=== PATIENT | male | born 1950 | race Caucasian/White ===

== ENCOUNTER 2019-01-02 07:35 | Inpatient (IN) | payer MEDICARE, MEDICAID ==
[~2019-01-02] VITALS: Ht 172.7 cm; Wt 68.5 kg
[2019-01-02 13:04] LABS: HEMATOCRIT. 38.7 % (42.0-52.0); MEAN CORPUSCULAR HEMOGLOBIN 28.9 pg (28.0-32.0); MEAN CORPUSCULAR VOLUME 85.9 fL (80.0-94.0); MEAN PLATELET VOLUME 7.2 fl (7.4-10.4); PLATELET 173 x1000/uL (130-400); RED BLOOD CELL COUNT 4.51 mill/uL (4.7-6.1); RED CELL DISTRIBUTION WIDTH 13.2 % (11.6-14.6)
[2019-01-02 13:11] LABS: INR 1.1; PROTHROMBIN TIME 11.2 sec (9.1-11.1)
[2019-01-02 13:12] LABS: CHLORIDE 90 mEq/L (98-107)
[2019-01-02 14:26] LABS: PLATELET ESTIMATE NORMAL
[2019-01-02 18:08] LABS: CLARITY URINE CLOUDY (CLEAR); COLOR URINE YELLOW (YELLOW); KETONES URINE NEGATIVE (NEGATIVE); LEUKOCYTE ESTERASE URINE NEGATIVE (NEGATIVE); NITRITE URINE NEGATIVE (NEGATIVE); OCCULT BLOOD URINE 3+ (NEGATIVE); PH URINE 5.5 (4.5-8.0); PROTEIN URINE 2+ (NEGATIVE); SPECIFIC GRAVITY URINE 1.014 (1.005-1.030)
[2019-01-02] MEDS ORDERED: SODIUM CHLORIDE 0.9% 100 ML IV ONE (18:15)
[2019-01-02] MEDS ORDERED: LEVOFLOXACIN 750MG PREMIX 150 ML IV ONE (19:00)
[2019-01-02 22:00] VITALS: BP 129/69
[2019-01-02 22:20] VITALS: BP 129/69
[2019-01-02] MEDS ORDERED: IPRATROPIUM/ALBUTEROL 0.5-3(2.5)MG/3ML NEB INH PRN (23:00)
[2019-01-02] MEDS ORDERED: DIPHENHYDRAMINE 50MG/ML VIAL IV PRN (23:00)
[2019-01-02] MEDS ORDERED: MAGNESIUM/ALUMINUM HYDROXIDE/SIMETHICONE 30ML UDC PO PRN (23:00)
[2019-01-02] MEDS ORDERED: GUAIFENESIN 200MG/10ML SUGAR FREE UDC PO PRN (23:00)
[2019-01-02] MEDS ORDERED: CLONIDINE 0.1MG TABLET PO PRN (23:00)
[2019-01-02] MEDS: TAMSULOSIN HCL 0.4MG SR CAPSULE PO SCH (23:45)
[2019-01-02] MEDS: SODIUM CHLORIDE 0.9% 1,000 ML IV SCH (23:46)
[2019-01-03] VITALS (7 sets, daily range): BP systolic 101–135; BP diastolic 57–82
[2019-01-03 07:26] LABS: HEMATOCRIT. 34.5 % (42.0-52.0); HEMOGLOBIN. 11.7 g/dL (14.0-18.0); MEAN CORPUSCULAR HEMOGLOBIN 28.9 pg (28.0-32.0); MEAN CORPUSCULAR VOLUME 85.5 fL (80.0-94.0); PLATELET 149 x1000/uL (130-400); RED BLOOD CELL COUNT 4.04 mill/uL (4.7-6.1)
[2019-01-03 08:13] LABS: CHLORIDE 97 mEq/L (98-107)
[2019-01-03 08:22] LABS: PHOSPHORUS 2.1 mg/dL (2.5-4.9)
[2019-01-03] MEDS: TAMSULOSIN HCL 0.4MG SR CAPSULE PO SCH (09:07)
[2019-01-03] MEDS: POTASSIUM CHLORIDE 20MEQ TABLET SR PO PRN (09:20)
[2019-01-03] MEDS: HYDROCODONE/ACETAMINOPHEN 5/325MG TABLET PO PRN ×2 (09:21→15:45)
[2019-01-03] MEDS ORDERED: POTASSIUM CHLORIDE 10MEQ TABLET SR PO SCH (11:15)
[2019-01-03] MEDS ORDERED: MAGNESIUM 1 G PREMIX 100 ML IV SCH ×2 (12:30→14:00)
[2019-01-03 12:34] LABS: PLATELET ESTIMATE NORMAL
[2019-01-03] MEDS ORDERED: PIPERACILLIN/TAZ 3.375G PREMIX 50 ML IV SCH (14:00)
[2019-01-03] MEDS ORDERED: VANCOMYCIN 1500MG in DEXTROSE 5% WATER 250ML IV NR (14:00)
[2019-01-03] MEDS ORDERED: SODIUM PHOS,M-BASIC-D-BASIC 15 MM in DEXT 5% WATER 245 ML IV NR (14:30)
[2019-01-03] MEDS: SODIUM CHLORIDE 0.9% 1,000 ML IV SCH (15:41)
[2019-01-03] MEDS ORDERED: DOXYCYCLINE HYCLATE 100MG CAPSULE PO NR (17:00)
[2019-01-03] MEDS ORDERED: LEVOFLOXACIN 500MG PREMIX 100 ML IV SCH (18:00)
[2019-01-03] MEDS: ENOXAPARIN 40MG/0.4ML SYR SUBCUT SCH (18:00)
[2019-01-03] MEDS ORDERED: PERMETHRIN 5% CREAM 60GM TOP ONE (18:00)
[2019-01-03] MEDS: VANCOMYCIN 750 MG PREMIX 150 ML IV SCH (23:30)
[2019-01-04] VITALS: BP 92/51
[2019-01-04] MEDS ORDERED: VANCOMYCIN 1 G PREMIX 200 ML IV SCH (02:00)
[2019-01-04 04:00] VITALS: BP 93/55
[2019-01-04] MEDS: VANCOMYCIN 750 MG PREMIX 150 ML IV SCH ×2 (05:16→15:17)
[2019-01-04 06:51] LABS: HEMATOCRIT. 36.2 % (42.0-52.0); HEMOGLOBIN. 12.2 g/dL (14.0-18.0); MEAN CORPUSCULAR VOLUME 86.3 fL (80.0-94.0); MEAN PLATELET VOLUME 8.5 fl (7.4-10.4); PLATELET 157 x1000/uL (130-400); RED BLOOD CELL COUNT 4.19 mill/uL (4.7-6.1); RED CELL DISTRIBUTION WIDTH 13.6 % (11.6-14.6)
[2019-01-04 06:55] LABS: CHLORIDE 100 mEq/L (98-107)
[2019-01-04 07:15] LABS: HEPATITIS B SURFACE ANTIGEN NEGATIVE
[2019-01-04 07:18] LABS: CREATINE KINASE 2113 IU/L (39-308)
[2019-01-04 07:45] LABS: HEPATITIS A AB IGM NEGATIVE (NEGATIVE)
[2019-01-04 08:00] VITALS: BP 94/57
[2019-01-04] MEDS: DOXYCYCLINE HYCLATE 100MG CAPSULE PO SCH ×2 (08:25→21:00)
[2019-01-04] MEDS: TAMSULOSIN HCL 0.4MG SR CAPSULE PO SCH (08:26)
[2019-01-04] MEDS: HYDROCODONE/ACETAMINOPHEN 10/325MG TABLET PO PRN (08:28)
[2019-01-04] MEDS: SODIUM CHLORIDE 0.9% 1,000 ML IV SCH ×2 (08:35→22:58)
[2019-01-04] MEDS ORDERED: CEFTRIAXONE 2 G PREMIX 50 ML IV SCH (09:00)
[2019-01-04] MEDS: CEFTRIAXONE 2 G in DEXTROSE 5% WATER 50 ML IV SCH (10:23)
[2019-01-04 10:25] LABS: PLATELET ESTIMATE NORMAL
[2019-01-04 12:00] VITALS: BP 97/53
[2019-01-04] MEDS ORDERED: ONDANSETRON HCL 4MG/2ML INJ IV PRN (12:15)
[2019-01-04 16:00] VITALS: BP_SYST 114; BP_SYST 126; BP_DIAS 63; BP_DIAS 70
[2019-01-04] MEDS: MULTIVITAMINS,THER W-MINERALS TABLET PO SCH (17:40)
[2019-01-04] MEDS: ZINC SULFATE 220 MG ( 50 ) CAPSULE PO SCH (17:40)
[2019-01-04] MEDS: ENOXAPARIN 40MG/0.4ML SYR SUBCUT SCH (17:40)
[2019-01-04 20:00] VITALS: BP 112/64
[2019-01-04] MEDS: ASCORBIC ACID 250 MG TABLET PO SCH (21:43)
[2019-01-05] VITALS: BP 103/66
[2019-01-05 04:00] VITALS: BP 100/60
[2019-01-05 06:22] LABS: HEMATOCRIT. 33.4 % (42.0-52.0); HEMOGLOBIN. 11.2 g/dL (14.0-18.0); MEAN CORPUSCULAR VOLUME 86.6 fL (80.0-94.0); MEAN PLATELET VOLUME 8.6 fl (7.4-10.4); PLATELET 149 x1000/uL (130-400); RED BLOOD CELL COUNT 3.86 mill/uL (4.7-6.1); RED CELL DISTRIBUTION WIDTH 13.5 % (11.6-14.6)
[2019-01-05 06:47] LABS: CHLORIDE 98 mEq/L (98-107)
[2019-01-05 06:56] LABS: PHOSPHORUS 2.5 mg/dL (2.5-4.9)
[2019-01-05 08:00] VITALS: BP 122/86
[2019-01-05] MEDS: TAMSULOSIN HCL 0.4MG SR CAPSULE PO SCH (09:00)
[2019-01-05 09:10] LABS: HIV SCREEN 4G Non Reactive (Non Reactive)
[2019-01-05] MEDS: ASCORBIC ACID 250 MG TABLET PO SCH ×2 (09:22→21:10)
[2019-01-05] MEDS: DOXYCYCLINE HYCLATE 100MG CAPSULE PO SCH ×2 (09:22→21:10)
[2019-01-05] MEDS: ZINC SULFATE 220 MG ( 50 ) CAPSULE PO SCH (09:22)
[2019-01-05] MEDS: MULTIVITAMINS,THER W-MINERALS TABLET PO SCH (09:22)
[2019-01-05] MEDS: KETOROLAC 30MG/ML VIAL IV PRN (10:53)
[2019-01-05] MEDS: CEFTRIAXONE 2 G in DEXTROSE 5% WATER 50 ML IV SCH (11:34)
[2019-01-05] MEDS: ENOXAPARIN 60MG/0.6ML SYR SUBCUT SCH ×2 (11:35→21:10)
[2019-01-05 12:00] VITALS: BP 92/54
[2019-01-05] MEDS: DILTIAZEM HCL 30MG TABLET PO SCH ×2 (14:00→21:10)
[2019-01-05] MEDS: CELECOXIB 200MG CAPSULE PO SCH (14:47)
[2019-01-05 15:10] LABS: ANTI-NUCLEAR ANTIBODIES DIRECT Negative (Negative)
[2019-01-05 16:00] VITALS: BP 90/57
[2019-01-05 20:00] VITALS: BP 103/56
[2019-01-05] MEDS: HYDROCODONE/ACETAMINOPHEN 10/325MG TABLET PO PRN (21:11)
[2019-01-06] VITALS (7 sets, daily range): BP systolic 85–115; BP diastolic 50–64
[2019-01-06] MEDS: DILTIAZEM HCL 30MG TABLET PO SCH ×3 (05:55→21:59)
[2019-01-06] MEDS: HYDROCODONE/ACETAMINOPHEN 10/325MG TABLET PO PRN (05:55)
[2019-01-06 06:39] LABS: BASOPHILS % 0.1 % (0.0-2.0); EOSINOPHILS % 2.1 % (0.0-5.0); HEMATOCRIT. 36.5 % (42.0-52.0); HEMOGLOBIN. 12.2 g/dL (14.0-18.0); LYMPHOCYTES % 7.6 % (20.0-50.0); MEAN CORPUSCULAR HEMOGLOBIN 29.1 pg (28.0-32.0); MEAN CORPUSCULAR VOLUME 87.4 fL (80.0-94.0); MEAN PLATELET VOLUME 8.3 fl (7.4-10.4); MONOCYTES % 4.7 % (2.0-8.0); NEUTROPHILS % 85.5 % (40.0-76.0); PLATELET 177 x1000/uL (130-400); RED BLOOD CELL COUNT 4.18 mill/uL (4.7-6.1); RED CELL DISTRIBUTION WIDTH 13.7 % (11.6-14.6)
[2019-01-06 08:26] LABS: CHLORIDE 100 mEq/L (98-107)
[2019-01-06] MEDS: TAMSULOSIN HCL 0.4MG SR CAPSULE PO SCH (09:00)
[2019-01-06] MEDS: CELECOXIB 200MG CAPSULE PO SCH (09:40)
[2019-01-06] MEDS: POTASSIUM CHLORIDE 20MEQ TABLET SR PO PRN (09:40)
[2019-01-06] MEDS: MULTIVITAMINS,THER W-MINERALS TABLET PO SCH (09:40)
[2019-01-06] MEDS: DOXYCYCLINE HYCLATE 100MG CAPSULE PO SCH ×2 (09:40→20:38)
[2019-01-06] MEDS: ZINC SULFATE 220 MG ( 50 ) CAPSULE PO SCH (09:40)
[2019-01-06] MEDS: CEFTRIAXONE 2 G in DEXTROSE 5% WATER 50 ML IV SCH (09:40)
[2019-01-06] MEDS: ASCORBIC ACID 250 MG TABLET PO SCH ×2 (09:41→20:38)
[2019-01-06] MEDS: ENOXAPARIN 60MG/0.6ML SYR SUBCUT SCH ×2 (09:41→20:39)
[2019-01-06] MEDS ORDERED: IOHEXOL-300 100 ML BOTTLE ONE (13:26)
[2019-01-06 13:36] LABS: PLATELET ESTIMATE NORMAL
[2019-01-06] MEDS ORDERED: POTASSIUM CHLORIDE 20MEQ TABLET SR PO SCH (16:00)
[2019-01-06] MEDS: KETOROLAC 30MG/ML VIAL IV PRN (19:02)
[2019-01-06] MEDS: SODIUM CHLORIDE 0.9% 1,000 ML IV SCH (20:45)
[2019-01-07] VITALS: BP 98/49
[2019-01-07] MEDS: SODIUM CHLORIDE 0.9% 1,000 ML IV SCH ×3 (00:11→22:35)
[2019-01-07 04:00] VITALS: BP 97/43
[2019-01-07] MEDS: DILTIAZEM HCL 30MG TABLET PO SCH ×3 (05:49→21:27)
[2019-01-07 06:39] LABS: HEMATOCRIT. 32.7 % (42.0-52.0); HEMOGLOBIN. 10.9 g/dL (14.0-18.0); MEAN CORPUSCULAR HEMOGLOBIN 29.1 pg (28.0-32.0); MEAN PLATELET VOLUME 8.3 fl (7.4-10.4); PLATELET 240 x1000/uL (130-400); RED BLOOD CELL COUNT 3.75 mill/uL (4.7-6.1); RED CELL DISTRIBUTION WIDTH 13.8 % (11.6-14.6)
[2019-01-07 07:34] LABS: CHLORIDE 103 mEq/L (98-107)
[2019-01-07 08:00] VITALS: BP 111/63
[2019-01-07] MEDS: ASCORBIC ACID 250 MG TABLET PO SCH ×2 (09:29→21:27)
[2019-01-07] MEDS: CELECOXIB 200MG CAPSULE PO SCH (09:29)
[2019-01-07] MEDS: TAMSULOSIN HCL 0.4MG SR CAPSULE PO SCH (09:29)
[2019-01-07] MEDS: DOXYCYCLINE HYCLATE 100MG CAPSULE PO SCH ×2 (09:29→21:26)
[2019-01-07] MEDS: CEFTRIAXONE 2 G in DEXTROSE 5% WATER 50 ML IV SCH (09:29)
[2019-01-07] MEDS: MULTIVITAMINS,THER W-MINERALS TABLET PO SCH (09:29)
[2019-01-07] MEDS: ZINC SULFATE 220 MG ( 50 ) CAPSULE PO SCH (09:30)
[2019-01-07] MEDS: ENOXAPARIN 60MG/0.6ML SYR SUBCUT SCH ×2 (09:30→23:44)
[2019-01-07 12:00] VITALS: BP 114/58
[2019-01-07 14:22] LABS: PLATELET ESTIMATE NORMAL
[2019-01-07] MEDS: DOCUSATE SODIUM 100MG CAPSULE PO PRN (14:38)
[2019-01-07 16:20] VITALS: BP 109/63
[2019-01-07 19:06] LABS: QFT MITOGEN VALUE 0.22 IU/mL (.); QFT TB GOLD PLUS Indeterminate (Negative); QFT TB1 AG VALUE 0.17 IU/mL (.)
[2019-01-07 20:00] VITALS: BP 132/60
[2019-01-07] MEDS: KETOROLAC 30MG/ML VIAL IV PRN (23:43)
[2019-01-08] VITALS: BP 107/51
[2019-01-08 04:00] VITALS: BP 99/43
[2019-01-08] MEDS: SODIUM CHLORIDE 0.9% 1,000 ML IV SCH ×2 (06:21→21:31)
[2019-01-08] MEDS: DILTIAZEM HCL 30MG TABLET PO SCH ×3 (06:25→21:30)
[2019-01-08 06:28] LABS: HEMATOCRIT. 30.3 % (42.0-52.0); MEAN CORPUSCULAR HEMOGLOBIN 28.7 pg (28.0-32.0); MEAN CORPUSCULAR VOLUME 86.9 fL (80.0-94.0); MEAN PLATELET VOLUME 7.5 fl (7.4-10.4); PLATELET 362 x1000/uL (130-400); RED BLOOD CELL COUNT 3.48 mill/uL (4.7-6.1); RED CELL DISTRIBUTION WIDTH 13.6 % (11.6-14.6)
[2019-01-08 06:48] LABS: CHLORIDE 106 mEq/L (98-107)
[2019-01-08 06:57] LABS: CREATINE KINASE 117 IU/L (39-308)
[2019-01-08 08:00] VITALS: BP 134/70
[2019-01-08 09:11] LABS: PLATELET ESTIMATE NORMAL
[2019-01-08] MEDS: DOXYCYCLINE HYCLATE 100MG CAPSULE PO SCH ×2 (09:33→21:30)
[2019-01-08] MEDS: ENOXAPARIN 60MG/0.6ML SYR SUBCUT SCH (09:33)
[2019-01-08] MEDS: CEFTRIAXONE 2 G in DEXTROSE 5% WATER 50 ML IV SCH (09:33)
[2019-01-08] MEDS: ZINC SULFATE 220 MG ( 50 ) CAPSULE PO SCH (09:33)
[2019-01-08] MEDS: CELECOXIB 200MG CAPSULE PO SCH (09:34)
[2019-01-08] MEDS: TAMSULOSIN HCL 0.4MG SR CAPSULE PO SCH (09:34)
[2019-01-08] MEDS: DOCUSATE SODIUM 100MG CAPSULE PO PRN (09:34)
[2019-01-08] MEDS: MULTIVITAMINS,THER W-MINERALS TABLET PO SCH (09:46)
[2019-01-08] MEDS: ASCORBIC ACID 250 MG TABLET PO SCH ×2 (09:46→21:30)
[2019-01-08 12:00] VITALS: BP 139/75
[2019-01-08] MEDS: KETOROLAC 30MG/ML VIAL IV PRN (13:09)
[2019-01-08] MEDS: ASPIRIN 81MG TABLET PO SCH (15:37)
[2019-01-08] MEDS: ENOXAPARIN 40MG/0.4ML SYR SUBCUT SCH (15:40)
[2019-01-08 16:00] VITALS: BP 131/56
[2019-01-08 20:00] VITALS: BP 136/75
[2019-01-09] VITALS: BP 139/72
[2019-01-09 04:00] VITALS: BP 124/59
[2019-01-09 04:14] LABS: ROCKY MTN SPOTTED FEVER IgG QN Negative (Negative)
[2019-01-09 06:01] LABS: HEMATOCRIT. 31.8 % (42.0-52.0); HEMOGLOBIN. 10.7 g/dL (14.0-18.0); MEAN CORPUSCULAR HEMOGLOBIN 29.1 pg (28.0-32.0); MEAN CORPUSCULAR VOLUME 86.5 fL (80.0-94.0); MEAN PLATELET VOLUME 6.9 fl (7.4-10.4); PLATELET 495 x1000/uL (130-400); RED BLOOD CELL COUNT 3.67 mill/uL (4.7-6.1); RED CELL DISTRIBUTION WIDTH 13.9 % (11.6-14.6)
[2019-01-09 06:28] LABS: CHLORIDE 109 mEq/L (98-107)
[2019-01-09] MEDS: DILTIAZEM HCL 30MG TABLET PO SCH ×3 (06:47→21:32)
[2019-01-09] MEDS: SODIUM CHLORIDE 0.9% 1,000 ML IV SCH ×3 (06:47→21:43)
[2019-01-09 06:52] LABS: LDL CHOLESTEROL 50 mg/dL (5-100)
[2019-01-09 06:53] LABS: CREATINE KINASE 95 IU/L (39-308)
[2019-01-09 06:54] LABS: HDL CHOLESTEROL 11 mg/dL (40-59)
[2019-01-09 08:00] VITALS: BP 133/71
[2019-01-09 09:06] LABS: ALDOLASE 11.4 U/L (3.3-10.3)
[2019-01-09] MEDS: ASPIRIN 81MG TABLET PO SCH (09:55)
[2019-01-09] MEDS: CEFTRIAXONE 2 G in DEXTROSE 5% WATER 50 ML IV SCH (09:55)
[2019-01-09] MEDS: ASCORBIC ACID 250 MG TABLET PO SCH (09:55)
[2019-01-09] MEDS: ZINC SULFATE 220 MG ( 50 ) CAPSULE PO SCH (09:55)
[2019-01-09] MEDS: CELECOXIB 200MG CAPSULE PO SCH (09:55)
[2019-01-09] MEDS: MULTIVITAMINS,THER W-MINERALS TABLET PO SCH (09:55)
[2019-01-09] MEDS: TAMSULOSIN HCL 0.4MG SR CAPSULE PO SCH (09:55)
[2019-01-09] MEDS: DOXYCYCLINE HYCLATE 100MG CAPSULE PO SCH ×2 (09:56→21:32)
[2019-01-09] MEDS: HYDROXYCHLOROQUINE SULFATE 200MG TABLET PO SCH ×2 (09:56→18:17)
[2019-01-09] MEDS: KETOROLAC 30MG/ML VIAL IV PRN (10:08)
[2019-01-09 12:00] VITALS: BP 145/77
[2019-01-09 13:06] LABS: ANA IFA Negative (.)
[2019-01-09 14:12] LABS: PLATELET ESTIMATE SLIGHTLY INCREASED
[2019-01-09] MEDS: ENOXAPARIN 40MG/0.4ML SYR SUBCUT SCH (15:10)
[2019-01-09 16:00] VITALS: BP 135/80
[2019-01-09 20:00] VITALS: BP 138/74
[2019-01-09] MEDS: ASCORBIC ACID 500 MG TABLET PO SCH (21:32)
[2019-01-10] VITALS (7 sets, daily range): BP systolic 118–148; BP diastolic 65–81
[2019-01-10] MEDS: KETOROLAC 30MG/ML VIAL IV PRN ×2 (02:21→22:53)
[2019-01-10] MEDS: DILTIAZEM HCL 30MG TABLET PO SCH ×3 (06:00→21:48)
[2019-01-10 06:57] LABS: CHLORIDE 112 mEq/L (98-107)
[2019-01-10] MEDS: TAMSULOSIN HCL 0.4MG SR CAPSULE PO SCH (10:20)
[2019-01-10] MEDS: HYDROXYCHLOROQUINE SULFATE 200MG TABLET PO SCH ×2 (10:20→17:52)
[2019-01-10] MEDS: ZINC SULFATE 220 MG ( 50 ) CAPSULE PO SCH (10:20)
[2019-01-10] MEDS: CEFTRIAXONE 2 G in DEXTROSE 5% WATER 50 ML IV SCH (10:20)
[2019-01-10] MEDS: MULTIVITAMINS,THER W-MINERALS TABLET PO SCH (10:20)
[2019-01-10] MEDS: DOXYCYCLINE HYCLATE 100MG CAPSULE PO SCH ×2 (10:21→21:49)
[2019-01-10] MEDS: ASPIRIN 81MG TABLET PO SCH (10:21)
[2019-01-10] MEDS: CELECOXIB 200MG CAPSULE PO SCH (10:21)
[2019-01-10] MEDS: ASCORBIC ACID 500 MG TABLET PO SCH (10:21)
[2019-01-10] MEDS: SODIUM CHLORIDE 0.9% 1,000 ML IV SCH (10:35)
[2019-01-10] MEDS ORDERED: ASCORBIC ACID 250 MG TABLET PO SCH (12:24)
[2019-01-10 19:07] LABS: ANTI-DNA DOUBLE STRANDED QUANT < 1 IU/mL (0-9); RNP ANTIBODY < 0.2 AI (0.0-0.9); SMITH ANTIBODY < 0.2 AI (0.0-0.9)
[2019-01-10] MEDS: ASCORBIC ACID 250 MG TABLET PO SCH (21:48)
[2019-01-11 04:00] VITALS: BP 126/78
[2019-01-11] MEDS: DILTIAZEM HCL 30MG TABLET PO SCH (05:49)
[2019-01-11] MEDS: SODIUM CHLORIDE 0.9% 1,000 ML IV SCH ×2 (05:57→05:58)
[2019-01-11 07:00] LABS: HEMATOCRIT. 33.3 % (42.0-52.0); HEMOGLOBIN. 10.9 g/dL (14.0-18.0); MEAN CORPUSCULAR HEMOGLOBIN 28.7 pg (28.0-32.0); MEAN CORPUSCULAR VOLUME 87.3 fL (80.0-94.0); MEAN PLATELET VOLUME 6.6 fl (7.4-10.4); PLATELET 632 x1000/uL (130-400); RED BLOOD CELL COUNT 3.82 mill/uL (4.7-6.1)
[2019-01-11 08:00] VITALS: BP 146/81
[2019-01-11] MEDS: CEFTRIAXONE 2 G in DEXTROSE 5% WATER 50 ML IV SCH (08:50)
[2019-01-11] MEDS: ASPIRIN 81MG TABLET PO SCH (09:00)
[2019-01-11] MEDS: ASCORBIC ACID 250 MG TABLET PO SCH ×2 (09:00→21:27)
[2019-01-11] MEDS: ZINC SULFATE 220 MG ( 50 ) CAPSULE PO SCH (09:00)
[2019-01-11] MEDS: MULTIVITAMINS,THER W-MINERALS TABLET PO SCH (09:00)
[2019-01-11] MEDS: HYDROXYCHLOROQUINE SULFATE 200MG TABLET PO SCH ×2 (09:40→17:00)
[2019-01-11] MEDS: CELECOXIB 200MG CAPSULE PO SCH (09:40)
[2019-01-11] MEDS: TAMSULOSIN HCL 0.4MG SR CAPSULE PO SCH (09:41)
[2019-01-11] MEDS: DOXYCYCLINE HYCLATE 100MG CAPSULE PO SCH (09:41)
[2019-01-11 10:06] LABS: ANGIOTENSION CONVERTING ENZYME 55 U/L (14-82)
[2019-01-11 10:08] LABS: CHLORIDE 111 mEq/L (98-107)
[2019-01-11 12:00] VITALS: BP 147/69
[2019-01-11] MEDS: KETOROLAC 30MG/ML VIAL IV PRN ×2 (13:51→21:36)
[2019-01-11 13:59] LABS: PLATELET ESTIMATE INCREASED
[2019-01-11 15:06] LABS: ANTI-MYELOPEROXIDASE AB < 9.0 U/mL (0.0-9.0); ANTI-PROTEINASE 3 ABS < 3.5 U/mL (0.0-3.5); ATYPICAL P-ANCA <1:20 titer (Neg:<1:20); CYTOPLASMIC C-ANCA <1:20 titer (Neg:<1:20); PERINUCLEAR P-ANCA <1:20 titer (Neg:<1:20)
[2019-01-11 16:00] VITALS: BP 165/84
[2019-01-11 19:06] LABS: CYC CITRULLINATED PEP IgG/IgA 7 units (0-19)
[2019-01-11 20:00] VITALS: BP 158/86
[2019-01-12] VITALS: BP 163/87
[2019-01-12 04:00] VITALS: BP 148/86
[2019-01-12 07:04] LABS: BASOPHILS % 0.5 % (0.0-2.0); HEMATOCRIT. 33.7 % (42.0-52.0); HEMOGLOBIN. 11.5 g/dL (14.0-18.0); LYMPHOCYTES % 10.8 % (20.0-50.0); MEAN CORPUSCULAR HEMOGLOBIN 29.7 pg (28.0-32.0); MEAN CORPUSCULAR VOLUME 87.3 fL (80.0-94.0); MEAN PLATELET VOLUME 6.6 fl (7.4-10.4); MONOCYTES % 5.6 % (2.0-8.0); NEUTROPHILS % 82.1 % (40.0-76.0); PLATELET 630 x1000/uL (130-400); RED BLOOD CELL COUNT 3.86 mill/uL (4.7-6.1); RED CELL DISTRIBUTION WIDTH 13.7 % (11.6-14.6)
[2019-01-12 08:00] VITALS: BP 162/83
[2019-01-12 08:15] LABS: CHLORIDE 109 mEq/L (98-107)
[2019-01-12] MEDS: ZINC SULFATE 220 MG ( 50 ) CAPSULE PO SCH (10:13)
[2019-01-12] MEDS: CELECOXIB 200MG CAPSULE PO SCH (10:13)
[2019-01-12] MEDS: HYDROXYCHLOROQUINE SULFATE 200MG TABLET PO SCH ×2 (10:14→17:33)
[2019-01-12] MEDS: AMLODIPINE 5MG TABLET PO SCH (10:14)
[2019-01-12] MEDS: ASPIRIN 81MG TABLET PO SCH (10:14)
[2019-01-12] MEDS: MULTIVITAMINS,THER W-MINERALS TABLET PO SCH (10:15)
[2019-01-12] MEDS: ASCORBIC ACID 250 MG TABLET PO SCH ×2 (10:15→21:00)
[2019-01-12] MEDS: TAMSULOSIN HCL 0.4MG SR CAPSULE PO SCH (10:15)
[2019-01-12] MEDS ORDERED: METHYL SALICYLATE/MENTHOL CREAM 85GM TOP PRN (11:45)
[2019-01-12 12:00] VITALS: BP 148/79
[2019-01-12] MEDS: ACETAMINOPHEN 650MG/20.3ML UDC PO PRN (12:35)
[2019-01-12] MEDS ORDERED: CEFTRIAXONE XX SCH (15:15)
[2019-01-12] MEDS ORDERED: [UNRECOGNIZED DRUG - OTHER] XX SCH (15:15)
[2019-01-12] MEDS: DOXYCYCLINE HYCLATE 100MG CAPSULE PO SCH ×2 (15:50→22:27)
[2019-01-12 16:00] VITALS: BP 146/74
[2019-01-12] MEDS: CEFTRIAXONE 2 G in DEXTROSE 5% WATER 50 ML IV SCH (17:24)
[2019-01-12] MEDS: KETOROLAC 30MG/ML VIAL IV PRN (17:42)
[2019-01-12 20:00] VITALS: BP 154/75
[2019-01-13] VITALS: BP 150/71
[2019-01-13 04:00] VITALS: BP 156/72
[2019-01-13 07:35] LABS: CHLORIDE 108 mEq/L (98-107)
[2019-01-13 08:25] VITALS: BP 150/73
[2019-01-13] MEDS: ZINC SULFATE 220 MG ( 50 ) CAPSULE PO SCH (08:27)
[2019-01-13] MEDS: CELECOXIB 200MG CAPSULE PO SCH (08:27)
[2019-01-13] MEDS: ASCORBIC ACID 250 MG TABLET PO SCH ×2 (08:27→22:27)
[2019-01-13] MEDS: AMLODIPINE 5MG TABLET PO SCH (08:27)
[2019-01-13] MEDS: KETOROLAC 30MG/ML VIAL IV PRN ×2 (08:27→16:22)
[2019-01-13] MEDS: TAMSULOSIN HCL 0.4MG SR CAPSULE PO SCH (08:27)
[2019-01-13] MEDS: MULTIVITAMINS,THER W-MINERALS TABLET PO SCH (08:28)
[2019-01-13] MEDS: HYDROXYCHLOROQUINE SULFATE 200MG TABLET PO SCH ×2 (08:28→16:21)
[2019-01-13] MEDS: ASPIRIN 81MG TABLET PO SCH (08:28)
[2019-01-13] MEDS: DOXYCYCLINE HYCLATE 100MG CAPSULE PO SCH ×2 (08:28→22:27)
[2019-01-13 10:48] LABS: BASOPHILS % 0.8 % (0.0-2.0); EOSINOPHILS % 0.8 % (0.0-5.0); HEMATOCRIT. 33.6 % (42.0-52.0); HEMOGLOBIN. 11.1 g/dL (14.0-18.0); LYMPHOCYTES % 11.5 % (20.0-50.0); MEAN CORPUSCULAR HEMOGLOBIN 28.8 pg (28.0-32.0); MEAN CORPUSCULAR VOLUME 87.1 fL (80.0-94.0); MEAN PLATELET VOLUME 6.3 fl (7.4-10.4); MONOCYTES % 5.4 % (2.0-8.0); NEUTROPHILS % 81.5 % (40.0-76.0); PLATELET 617 x1000/uL (130-400); RED BLOOD CELL COUNT 3.86 mill/uL (4.7-6.1); RED CELL DISTRIBUTION WIDTH 14.2 % (11.6-14.6)
[2019-01-13 12:00] VITALS: BP 144/76
[2019-01-13 16:00] VITALS: BP 134/71
[2019-01-13] MEDS: CEFTRIAXONE 2 G in DEXTROSE 5% WATER 50 ML IV SCH (16:21)
[2019-01-13 20:00] VITALS: BP 133/70
[2019-01-14] VITALS: BP 151/70
[2019-01-14 04:00] VITALS: BP 144/83
[2019-01-14 08:00] VITALS: BP 147/70
[2019-01-14] MEDS: KETOROLAC 30MG/ML VIAL IV PRN ×2 (08:22→16:31)
[2019-01-14] MEDS: DOXYCYCLINE HYCLATE 100MG CAPSULE PO SCH ×2 (08:22→20:14)
[2019-01-14] MEDS: TAMSULOSIN HCL 0.4MG SR CAPSULE PO SCH (08:22)
[2019-01-14] MEDS: HYDROXYCHLOROQUINE SULFATE 200MG TABLET PO SCH ×2 (08:23→16:31)
[2019-01-14] MEDS: AMLODIPINE 5MG TABLET PO SCH (08:23)
[2019-01-14] MEDS: CELECOXIB 200MG CAPSULE PO SCH (09:00)
[2019-01-14] MEDS: ASPIRIN 81MG TABLET PO SCH (09:00)
[2019-01-14] MEDS: ZINC SULFATE 220 MG ( 50 ) CAPSULE PO SCH (09:00)
[2019-01-14] MEDS: ASCORBIC ACID 250 MG TABLET PO SCH ×2 (09:00→20:15)
[2019-01-14] MEDS: MULTIVITAMINS,THER W-MINERALS TABLET PO SCH (09:00)
[2019-01-14 12:00] VITALS: BP 148/82
[2019-01-14 16:00] VITALS: BP 128/71
[2019-01-14] MEDS: CEFTRIAXONE 2 G in DEXTROSE 5% WATER 50 ML IV SCH (16:31)
[2019-01-14 20:00] VITALS: BP 115/62
[2019-01-15 00:03] VITALS: BP 134/70
[2019-01-15] MEDS: KETOROLAC 30MG/ML VIAL IV PRN ×2 (03:10→10:17)
[2019-01-15 04:00] VITALS: BP 136/66
[2019-01-15 06:35] LABS: BASOPHILS % 1.1 % (0.0-2.0); EOSINOPHILS % 0.9 % (0.0-5.0); HEMATOCRIT. 30.3 % (42.0-52.0); HEMOGLOBIN. 10.2 g/dL (14.0-18.0); MEAN CORPUSCULAR HEMOGLOBIN 28.9 pg (28.0-32.0); MEAN CORPUSCULAR VOLUME 85.7 fL (80.0-94.0); MEAN PLATELET VOLUME 6.5 fl (7.4-10.4); MONOCYTES % 7.6 % (2.0-8.0); NEUTROPHILS % 76.4 % (40.0-76.0); PLATELET 588 x1000/uL (130-400); RED BLOOD CELL COUNT 3.54 mill/uL (4.7-6.1); RED CELL DISTRIBUTION WIDTH 13.7 % (11.6-14.6)
[2019-01-15 06:53] LABS: CHLORIDE 106 mEq/L (98-107)
[2019-01-15 08:00] VITALS: BP 146/72
[2019-01-15] MEDS: MULTIVITAMINS,THER W-MINERALS TABLET PO SCH (09:39)
[2019-01-15] MEDS: ZINC SULFATE 220 MG ( 50 ) CAPSULE PO SCH (09:39)
[2019-01-15] MEDS: AMLODIPINE 5MG TABLET PO SCH (09:40)
[2019-01-15] MEDS: TAMSULOSIN HCL 0.4MG SR CAPSULE PO SCH (09:40)
[2019-01-15] MEDS: DOXYCYCLINE HYCLATE 100MG CAPSULE PO SCH ×2 (09:41→20:59)
[2019-01-15] MEDS: CELECOXIB 200MG CAPSULE PO SCH (09:41)
[2019-01-15] MEDS: HYDROXYCHLOROQUINE SULFATE 200MG TABLET PO SCH ×2 (09:41→17:27)
[2019-01-15] MEDS: ASPIRIN 81MG TABLET PO SCH (09:41)
[2019-01-15] MEDS: ASCORBIC ACID 250 MG TABLET PO SCH ×2 (09:41→20:59)
[2019-01-15 12:00] VITALS: BP 122/67
[2019-01-15 16:00] VITALS: BP 114/72
[2019-01-15] MEDS: CEFTRIAXONE 2 G in DEXTROSE 5% WATER 50 ML IV SCH (17:26)
[2019-01-15 20:00] VITALS: BP 120/68
[2019-01-15] MEDS ORDERED: HYDROCODONE/ACETAMINOPHEN 5/325MG TABLET PO NR (23:30)
[2019-01-16] VITALS (7 sets, daily range): BP systolic 103–151; BP diastolic 57–86
[2019-01-16] MEDS: KETOROLAC 30MG/ML VIAL IV PRN ×3 (06:24→22:10)
[2019-01-16] MEDS: HYDROXYCHLOROQUINE SULFATE 200MG TABLET PO SCH ×2 (08:32→17:24)
[2019-01-16] MEDS: DOXYCYCLINE HYCLATE 100MG CAPSULE PO SCH ×2 (08:33→22:09)
[2019-01-16] MEDS: MULTIVITAMINS,THER W-MINERALS TABLET PO SCH (08:33)
[2019-01-16] MEDS: ASPIRIN 81MG TABLET PO SCH (08:33)
[2019-01-16] MEDS: CELECOXIB 200MG CAPSULE PO SCH (08:33)
[2019-01-16] MEDS: ZINC SULFATE 220 MG ( 50 ) CAPSULE PO SCH (08:33)
[2019-01-16] MEDS: AMLODIPINE 5MG TABLET PO SCH (08:34)
[2019-01-16] MEDS: TAMSULOSIN HCL 0.4MG SR CAPSULE PO SCH (08:34)
[2019-01-16] MEDS: ASCORBIC ACID 250 MG TABLET PO SCH ×2 (08:45→22:09)
[2019-01-17] VITALS: BP 126/62
[2019-01-17 04:00] VITALS: BP 143/73
[2019-01-17] MEDS: KETOROLAC 30MG/ML VIAL IV PRN ×3 (05:32→22:24)
[2019-01-17 08:00] VITALS: BP 115/65
[2019-01-17] MEDS: AMLODIPINE 5MG TABLET PO SCH (09:00)
[2019-01-17] MEDS: MULTIVITAMINS,THER W-MINERALS TABLET PO SCH (09:01)
[2019-01-17] MEDS: ASPIRIN 81MG TABLET PO SCH (09:01)
[2019-01-17] MEDS: TAMSULOSIN HCL 0.4MG SR CAPSULE PO SCH (09:01)
[2019-01-17] MEDS: ZINC SULFATE 220 MG ( 50 ) CAPSULE PO SCH (09:01)
[2019-01-17] MEDS: ASCORBIC ACID 250 MG TABLET PO SCH ×2 (09:01→22:23)
[2019-01-17] MEDS: HYDROXYCHLOROQUINE SULFATE 200MG TABLET PO SCH ×2 (09:02→17:00)
[2019-01-17] MEDS: DOXYCYCLINE HYCLATE 100MG CAPSULE PO SCH ×2 (09:02→22:23)
[2019-01-17] MEDS: CELECOXIB 200MG CAPSULE PO SCH (09:02)
[2019-01-17 12:00] VITALS: BP 130/65
[2019-01-17 16:00] VITALS: BP 105/53
[2019-01-17 20:00] VITALS: BP 119/50
[2019-01-18] VITALS: BP 105/56
[2019-01-18 04:00] VITALS: BP 123/52
[2019-01-18 06:46] LABS: BASOPHILS % 1.3 % (0.0-2.0); EOSINOPHILS % 0.9 % (0.0-5.0); HEMATOCRIT. 33.7 % (42.0-52.0); HEMOGLOBIN. 11.1 g/dL (14.0-18.0); LYMPHOCYTES % 15.4 % (20.0-50.0); MEAN CORPUSCULAR HEMOGLOBIN 28.7 pg (28.0-32.0); MEAN PLATELET VOLUME 6.7 fl (7.4-10.4); NEUTROPHILS % 72.4 % (40.0-76.0); PLATELET 561 x1000/uL (130-400); RED BLOOD CELL COUNT 3.88 mill/uL (4.7-6.1); RED CELL DISTRIBUTION WIDTH 13.7 % (11.6-14.6)
[2019-01-18 06:52] LABS: CHLORIDE 102 mEq/L (98-107)
[2019-01-18 08:00] VITALS: BP 133/61
[2019-01-18] MEDS: HYDROXYCHLOROQUINE SULFATE 200MG TABLET PO SCH ×2 (09:26→18:06)
[2019-01-18] MEDS: MULTIVITAMINS,THER W-MINERALS TABLET PO SCH (09:27)
[2019-01-18] MEDS: TAMSULOSIN HCL 0.4MG SR CAPSULE PO SCH (09:27)
[2019-01-18] MEDS: AMLODIPINE 5MG TABLET PO SCH (09:27)
[2019-01-18] MEDS: ASCORBIC ACID 250 MG TABLET PO SCH ×2 (09:27→22:27)
[2019-01-18] MEDS: ZINC SULFATE 220 MG ( 50 ) CAPSULE PO SCH (09:28)
[2019-01-18] MEDS: ASPIRIN 81MG TABLET PO SCH (09:28)
[2019-01-18] MEDS: DOXYCYCLINE HYCLATE 100MG CAPSULE PO SCH (09:28)
[2019-01-18] MEDS: CELECOXIB 200MG CAPSULE PO SCH (09:28)
[2019-01-18 12:00] VITALS: BP 121/60
[2019-01-18] MEDS: KETOROLAC 30MG/ML VIAL IV PRN (12:02)
[2019-01-18 16:00] VITALS: BP 109/52
[2019-01-18] MEDS: TRAMADOL 50MG TABLET PO PRN (18:07)
[2019-01-18 20:00] VITALS: BP 99/56
[2019-01-19] VITALS: BP 112/66
[2019-01-19 04:00] VITALS: BP 102/50
[2019-01-19 07:03] LABS: BASOPHILS % 1.2 % (0.0-2.0); EOSINOPHILS % 1.4 % (0.0-5.0); HEMOGLOBIN. 11.1 g/dL (14.0-18.0); LYMPHOCYTES % 19.1 % (20.0-50.0); MEAN CORPUSCULAR HEMOGLOBIN 28.4 pg (28.0-32.0); MEAN CORPUSCULAR VOLUME 87.1 fL (80.0-94.0); MEAN PLATELET VOLUME 6.8 fl (7.4-10.4); MONOCYTES % 9.3 % (2.0-8.0); PLATELET 492 x1000/uL (130-400); RED CELL DISTRIBUTION WIDTH 13.7 % (11.6-14.6)
[2019-01-19 07:12] LABS: CHLORIDE 103 mEq/L (98-107)
[2019-01-19 08:00] VITALS: BP 120/66
[2019-01-19 08:17] VITALS: BP 120/66
[2019-01-19] MEDS: MULTIVITAMINS,THER W-MINERALS TABLET PO SCH (08:53)
[2019-01-19] MEDS: HYDROXYCHLOROQUINE SULFATE 200MG TABLET PO SCH (08:53)
[2019-01-19] MEDS: ASCORBIC ACID 250 MG TABLET PO SCH (08:53)
[2019-01-19] MEDS: ZINC SULFATE 220 MG ( 50 ) CAPSULE PO SCH (08:53)
[2019-01-19] MEDS: ASPIRIN 81MG TABLET PO SCH (08:53)
[2019-01-19] MEDS: AMLODIPINE 5MG TABLET PO SCH (08:53)
[2019-01-19] MEDS: CELECOXIB 200MG CAPSULE PO SCH (08:53)
[2019-01-19] MEDS: TAMSULOSIN HCL 0.4MG SR CAPSULE PO SCH (08:53)
[2019-01-19] MEDS: TRAMADOL 50MG TABLET PO PRN (08:57)
[2019-01-19 11:59] VITALS: BP 104/62
[2019-01-19] MEDS: ACETAMINOPHEN 650MG/20.3ML UDC PO PRN (12:12)
[2019-01-19 14:26] VITALS: BP 120/81
[2019-01-21] MEDS ORDERED: LEVO500T2 PO (20:59)
== END 2019-01-19 17:43 | disposition home or self-care (01) | DRG 720 ==
LOC: ER 07:35 → 6EST 18:37 → EDBEDREQ 19:18 → ENRESERV 19:54 → 8WST 01-03 22:42 → 6EST 01-16 10:27
PROVIDERS: ADMIT Family Medicine Adult Medicine; ATTEND Family Medicine Adult Medicine
DX: A40.0 Sepsis due to streptococcus, group A (principal); D69.6 Thrombocytopenia, unspecified; E44.1 Mild protein-calorie malnutrition; E83.39 Other disorders of phosphorus metabolism; E87.1 Hypo-osmolality and hyponatremia; I48.0 Paroxysmal atrial fibrillation; B85.1 Pediculosis due to Pediculus humanus corporis; M62.82 Rhabdomyolysis; E87.6 Hypokalemia; Z59.0 Homelessness; L03.114 Cellulitis of left upper limb; B88.8 Other specified infestations; M60.9 Myositis, unspecified; L97.929 Non-pressure chronic ulcer of unspecified part of left lower leg with unspecified severity; L97.919 Non-pressure chronic ulcer of unspecified part of right lower leg with unspecified severity; D64.9 Anemia, unspecified; R59.0 Localized enlarged lymph nodes; M25.551 Pain in right hip; M47.896 Other spondylosis, lumbar region; M54.30 Sciatica, unspecified side; R74.0 Nonspecific elevation of levels of transaminase and lactic acid dehydrogenase [LDH]; M25.461 Effusion, right knee; R00.1 Bradycardia, unspecified; F17.210 Nicotine dependence, cigarettes, uncomplicated; K52.9 Noninfective gastroenteritis and colitis, unspecified; M19.90 Unspecified osteoarthritis, unspecified site; N18.9 Chronic kidney disease, unspecified; N39.0 Urinary tract infection, site not specified; N40.0 Benign prostatic hyperplasia without lower urinary tract symptoms; W18.30XA Fall on same level, unspecified, initial encounter; Y93.89 Activity, other specified; Y92.89 Other specified places as the place of occurrence of the external cause; Y99.8 Other external cause status; Z87.81 Personal history of (healed) traumatic fracture; Z87.01 Personal history of pneumonia (recurrent); Z68.23 Body mass index [BMI] 23.0-23.9, adult
CPT/HCPCS: 36415; 71045; 71260; 72110; 72195; 73110; 73502; 73562; 74018; 74176; 74177; 80048; 80061; 80076; 80202; 82085; 82164; 82550; 83036; 83520; 83615; 83735; 84100; 84153; 84443; 84550; 85651; 86038; 86160; 86200; 86225; 86235; 86256; 86431; 86480; 86592; 86705; 86709; 86757; 86803; 87077; 87186; 87340; 87389; 93005; 93306; 93970; 96374; 96375; 97116; 97162; 97166; 97530; 97535; 99291; C1893; J0696; J1650; J1885; J1956; J2405; J2543; J3370; J3475; J3490; J7030; J7040; J7050; J7060; Q9967; A4315; G0103

== ENCOUNTER 2019-01-19 20:11 | Inpatient (IN) | payer MEDICARE, MEDICAID ==
[~2019-01-19] VITALS: Ht 172.7 cm; Wt 52.3 kg
[2019-01-20] MEDS ORDERED: KETOROLAC 30MG/ML VIAL IV STA (03:15)
[2019-01-20] MEDS ORDERED: ONDANSETRON HCL 4MG/2ML INJ IV STA (03:15)
[2019-01-20] MEDS ORDERED: VANCOMYCIN 1 G PREMIX 200 ML IV ONE (03:15)
[2019-01-20] MEDS ORDERED: PIPERACILLIN/TAZ 3.375G PREMIX 50 ML IV ONE (03:15)
[2019-01-20] MEDS ORDERED: SODIUM CHLORIDE 0.9% 1,000 ML IV ONE (03:15)
[2019-01-20 04:15] LABS: CHLORIDE 100 mEq/L (98-107)
[2019-01-20 04:18] LABS: ETHANOL BLOOD < 10 mg/dL
[2019-01-20 04:19] LABS: BASOPHILS % 0.6 % (0.0-2.0); EOSINOPHILS % 0.3 % (0.0-5.0); HEMATOCRIT. 32.9 % (42.0-52.0); LYMPHOCYTES % 12.8 % (20.0-50.0); MEAN CORPUSCULAR HEMOGLOBIN 28.9 pg (28.0-32.0); MEAN CORPUSCULAR VOLUME 86.1 fL (80.0-94.0); MEAN PLATELET VOLUME 6.9 fl (7.4-10.4); MONOCYTES % 7.1 % (2.0-8.0); NEUTROPHILS % 79.2 % (40.0-76.0); PLATELET 534 x1000/uL (130-400); RED BLOOD CELL COUNT 3.82 mill/uL (4.7-6.1); RED CELL DISTRIBUTION WIDTH 13.6 % (11.6-14.6)
[2019-01-20 04:26] LABS: INR 1.3; PROTHROMBIN TIME 12.9 sec (9.1-11.1)
[2019-01-20] MEDS ORDERED: GUAIFENESIN 200MG/10ML SUGAR FREE UDC PO PRN (09:30)
[2019-01-20] MEDS ORDERED: MAGNESIUM/ALUMINUM HYDROXIDE/SIMETHICONE 30ML UDC PO PRN (09:30)
[2019-01-20] MEDS ORDERED: CLONIDINE 0.1MG TABLET PO PRN (09:30)
[2019-01-20] MEDS ORDERED: ACETAMINOPHEN 650MG/20.3ML UDC GT PRN (09:30)
[2019-01-20] MEDS ORDERED: DOCUSATE SODIUM 100MG CAPSULE PO PRN (09:30)
[2019-01-20] MEDS ORDERED: ACETAMINOPHEN 650MG SUPP PR PRN (09:30)
[2019-01-20] MEDS ORDERED: DIPHENHYDRAMINE 50MG/ML VIAL IV PRN (09:30)
[2019-01-20] MEDS ORDERED: IPRATROPIUM/ALBUTEROL 0.5-3(2.5)MG/3ML NEB INH PRN (09:30)
[2019-01-20] MEDS ORDERED: ACETAMINOPHEN 325MG TABLET PO PRN (09:30)
[2019-01-20] MEDS ORDERED: ONDANSETRON HCL 4MG/2ML INJ IV PRN (09:30)
[2019-01-20] MEDS ORDERED: NA PHOS,M-B/NA PHOS,DI-BA ENEMA 118ML PR PRN (09:30)
[2019-01-20 11:00] VITALS: BP 130/69
[2019-01-20] MEDS: LEVOFLOXACIN 500MG PREMIX 100 ML IV SCH (13:17)
[2019-01-20] MEDS: HYDROCODONE/ACETAMINOPHEN 10/325MG TABLET PO PRN (13:18)
[2019-01-20] MEDS: ENOXAPARIN 40MG/0.4ML SYR SUBCUT SCH (13:18)
[2019-01-20 16:00] VITALS: BP 111/55
[2019-01-20] MEDS: IPRATROPIUM/ALBUTEROL 0.5-3(2.5)MG/3ML NEB INH SCH ×2 (16:03→21:43)
[2019-01-20] MEDS: SODIUM CHLORIDE 0.9% INJ 3ML FLUSH IVF SCH ×2 (16:36→21:23)
[2019-01-20 17:15] LABS: CREATINE KINASE 33 IU/L (39-308)
[2019-01-20 20:00] VITALS: BP 112/59
[2019-01-21] VITALS: BP_SYST 114; BP_SYST 116; BP_DIAS 58; BP_DIAS 59
[2019-01-21 00:57] LABS: CREATINE KINASE 29 IU/L (39-308)
[2019-01-21 00:59] LABS: CREATINE KINASE MB FRACTION 1.5 ng/mL (0.5-3.6)
[2019-01-21 04:00] VITALS: BP 128/62
[2019-01-21] MEDS: SODIUM CHLORIDE 0.9% INJ 3ML FLUSH IVF SCH ×3 (05:25→20:04)
[2019-01-21] MEDS: HYDROCODONE/ACETAMINOPHEN 10/325MG TABLET PO PRN ×2 (05:54→20:05)
[2019-01-21 06:08] LABS: BASOPHILS % 1.4 % (0.0-2.0); EOSINOPHILS % 1.2 % (0.0-5.0); HEMATOCRIT. 28.9 % (42.0-52.0); HEMOGLOBIN. 9.7 g/dL (14.0-18.0); LYMPHOCYTES % 21.8 % (20.0-50.0); MEAN CORPUSCULAR HEMOGLOBIN 28.7 pg (28.0-32.0); MEAN CORPUSCULAR VOLUME 85.7 fL (80.0-94.0); MEAN PLATELET VOLUME 6.5 fl (7.4-10.4); MONOCYTES % 12.1 % (2.0-8.0); NEUTROPHILS % 63.5 % (40.0-76.0); PLATELET 457 x1000/uL (130-400); RED BLOOD CELL COUNT 3.38 mill/uL (4.7-6.1); RED CELL DISTRIBUTION WIDTH 13.7 % (11.6-14.6)
[2019-01-21 06:57] LABS: CHLORIDE 104 mEq/L (98-107)
[2019-01-21 07:35] LABS: LDL CHOLESTEROL 71 mg/dL (5-100)
[2019-01-21 07:38] LABS: HDL CHOLESTEROL 24 mg/dL (40-59)
[2019-01-21 08:00] VITALS: BP 122/63
[2019-01-21] MEDS: ENOXAPARIN 40MG/0.4ML SYR SUBCUT SCH (11:55)
[2019-01-21] MEDS: LEVOFLOXACIN 500MG PREMIX 100 ML IV SCH (11:56)
[2019-01-21 12:00] VITALS: BP 91/45
[2019-01-21] MEDS: IPRATROPIUM/ALBUTEROL 0.5-3(2.5)MG/3ML NEB INH SCH ×2 (12:00→21:21)
[2019-01-21 16:00] VITALS: BP 118/56
[2019-01-21 20:00] VITALS: BP_SYST 109; BP_SYST 121; BP_DIAS 50; BP_DIAS 62
[2019-01-21] MEDS ORDERED: LEVO500T2 PO (20:59)
[2019-01-22] VITALS: BP 108/51
[2019-01-22] MEDS: IPRATROPIUM/ALBUTEROL 0.5-3(2.5)MG/3ML NEB INH SCH ×4 (00:02→20:49)
[2019-01-22 03:28] LABS: *BARBITURATES SCREEN URINE NEGATIVE (NEGATIVE); *BENZODIAZEPINES SCREEN URINE NEGATIVE (NEGATIVE)
[2019-01-22 03:29] LABS: *AMPHETAMINES SCREEN URINE NEGATIVE (NEGATIVE); *COCAINE SCREEN URINE NEGATIVE (NEGATIVE); CANNABINOID URINE SCREEN NEGATIVE (NEGATIVE); METHADONE URINE SCREEN NEGATIVE (NEGATIVE); OPIATES URINE SCREEN PRESUMTIVE POSITIVE (NEGATIVE); PHENCYCLIDINE URINE SCREEN NEGATIVE (NEGATIVE)
[2019-01-22 04:00] VITALS: BP 117/58
[2019-01-22] MEDS: SODIUM CHLORIDE 0.9% INJ 3ML FLUSH IVF SCH ×3 (05:18→22:00)
[2019-01-22 08:00] VITALS: BP_SYST 128; BP_SYST 130; BP_DIAS 60; BP_DIAS 61
[2019-01-22] MEDS: HYDROCODONE/ACETAMINOPHEN 10/325MG TABLET PO PRN ×3 (09:02→20:46)
[2019-01-22] MEDS: LEVOFLOXACIN 500MG TABLET PO SCH (11:56)
[2019-01-22] MEDS: ENOXAPARIN 40MG/0.4ML SYR SUBCUT SCH (11:57)
[2019-01-22 12:00] VITALS: BP 105/50
[2019-01-22 16:00] VITALS: BP 136/66
[2019-01-22 20:00] VITALS: BP_SYST 112; BP_SYST 129; BP_DIAS 55; BP_DIAS 90
[2019-01-23] VITALS: BP 112/54
[2019-01-23] MEDS: IPRATROPIUM/ALBUTEROL 0.5-3(2.5)MG/3ML NEB INH SCH ×4 (00:53→20:03)
[2019-01-23 04:00] VITALS: BP 139/64
[2019-01-23] MEDS: HYDROCODONE/ACETAMINOPHEN 5/325MG TABLET PO PRN (04:00)
[2019-01-23] MEDS: SODIUM CHLORIDE 0.9% INJ 3ML FLUSH IVF SCH (06:00)
[2019-01-23 08:00] VITALS: BP_SYST 117; BP_SYST 131; BP_DIAS 57; BP_DIAS 61
[2019-01-23] MEDS: HYDROCODONE/ACETAMINOPHEN 10/325MG TABLET PO PRN ×2 (09:04→21:11)
[2019-01-23 12:00] VITALS: BP 103/54
[2019-01-23] MEDS: ENOXAPARIN 40MG/0.4ML SYR SUBCUT SCH (12:08)
[2019-01-23] MEDS: LEVOFLOXACIN 500MG TABLET PO SCH (12:08)
[2019-01-23 16:00] VITALS: BP 115/60
[2019-01-23 20:00] VITALS: BP 102/56
[2019-01-24] VITALS: BP_SYST 101; BP_SYST 103; BP_DIAS 47; BP_DIAS 55
[2019-01-24] MEDS: IPRATROPIUM/ALBUTEROL 0.5-3(2.5)MG/3ML NEB INH SCH ×2 (00:50→08:30)
[2019-01-24 04:00] VITALS: BP 132/65
[2019-01-24] MEDS: SODIUM CHLORIDE 0.9% INJ 3ML FLUSH IVF SCH (06:08)
[2019-01-24 08:00] VITALS: BP 96/59
[2019-01-24] MEDS: HYDROCODONE/ACETAMINOPHEN 10/325MG TABLET PO PRN (09:27)
[2019-01-24 12:00] VITALS: BP 122/67
[2019-01-24] MEDS: ENOXAPARIN 40MG/0.4ML SYR SUBCUT SCH (12:09)
[2019-01-24] MEDS: LEVOFLOXACIN 500MG TABLET PO SCH (12:09)
[2019-01-24 12:27] VITALS: BP 122/57
[2019-01-24 14:31] VITALS: BP 122/57
[2019-01-24] MEDS: HYDROCODONE/ACETAMINOPHEN 5/325MG TABLET PO PRN (14:31)
== END 2019-01-24 16:15 | disposition home or self-care (01) | DRG 139 ==
LOC: ER 20:11 → 5WST 01-20 04:38 → EDBEDREQTM 01-20 04:40 → EDBEDREQ 01-20 04:40 → ENRESERV 01-20 08:00
PROVIDERS: ADMIT Family Medicine; ATTEND Family Medicine
DX: J18.1 Lobar pneumonia, unspecified organism (principal); E43 Unspecified severe protein-calorie malnutrition; I48.91 Unspecified atrial fibrillation; G90.8 Other disorders of autonomic nervous system; J44.0 Chronic obstructive pulmonary disease with (acute) lower respiratory infection; D64.9 Anemia, unspecified; G89.29 Other chronic pain; N40.0 Benign prostatic hyperplasia without lower urinary tract symptoms; Z96.641 Presence of right artificial hip joint; M54.30 Sciatica, unspecified side; Z68.1 Body mass index [BMI] 19.9 or less, adult
CPT/HCPCS: 36415; 71045; 73502; 80061; 80305; 80320; 82550; 82553; 83605; 83880; 84145; 84484; 85379; 93005; 93970; 94640; 96365; 96366; 96368; 96375; 97163; 97167; 99285; J1650; J1885; J1956; J2405; J2543; J3370; J7030; J7050; J7620; G0480

== ENCOUNTER 2025-08-29 08:02 | Emergency (ER) | payer MEDICARE, MEDICAID ==
[~2025-08-29] VITALS: Ht 170.2 cm; Wt 73.0 kg
[~2025-08-29 08:02] MED LIST: LEVO500T2 PO
[2025-08-29 08:05] VITALS: TEMP 36.2; O2SAT 100
[2025-08-29 09:04] LABS: CLARITY URINE CLEAR (CLEAR); COLOR URINE ORANGE (YELLOW); GLUCOSE URINE NEGATIVE (NEGATIVE); KETONES URINE NEGATIVE (NEGATIVE); LEUKOCYTE ESTERASE URINE TRACE (NEGATIVE); NITRITE URINE NEGATIVE (NEGATIVE); OCCULT BLOOD URINE 3+ (NEGATIVE); PH URINE 7.0 (4.5-8.0); PROTEIN URINE NEGATIVE (NEGATIVE); SPECIFIC GRAVITY URINE 1.008 (1.005-1.030); UROBILINOGEN URINE 0.2 E.U./dL (0.2-1.0)
[2025-08-29 09:33] LABS: RBC URINE TNTC /hpf (0-2)
[2025-08-29 09:34] LABS: BACTERIA URINE 4+; SQUAMOUS EPITHELIAL CELL URINE RARE /lpf (RARE/1+); WBC URINE 0-2 /hpf (0-2)
[2025-08-29 10:20] VITALS: BP 159/79; PULSE 62; RESP 19; O2SAT 100
== END 2025-08-29 10:53 | disposition home or self-care (01) ==
LOC: ER 08:02
DX: R33.8 Other retention of urine (principal)
CPT/HCPCS: 51702; 81003; 87077; 87186; 99284; A4606